=== PATIENT | female | born 1990 | race Caucasian/White ===

== ENCOUNTER → 2021-04-01 | Outpatient (CLI) | payer BC ==
[~2021-04-01] MED LIST: CEPHALEXIN 500500 M2 PO; IBUPROFEN 800800 M1; NORCO 5-325 TA1 EACH; PRENATAL; ULTRAM 50MG TAB50 MG PO; ZOFRAN4 MG PO; ZYRTEC10 M2 PO
== END ==
LOC: M.ULTRA 11:38
PROVIDERS: ATTEND Nurse Practitioner Family
DX: N63.0 Unspecified lump in unspecified breast (principal)